=== PATIENT | male | born 1990 | race Caucasian/White ===

== ENCOUNTER → 2017-01-16 | Outpatient (CLI) | payer OTHER | LOC: KOH-I 11:31 | DX: M54.5 Low back pain (principal) | CPT/HCPCS: 72110 ==

== ENCOUNTER 2021-03-28 08:05 | Emergency (ER) | payer BC, OTHER ==
[2021-03-28] MEDS ORDERED: IBUPROFEN600 MG PO (09:33)
== END 2021-03-28 10:15 | disposition home or self-care (01) ==
LOC: ER1 08:05
DX: S83.92XA Sprain of unspecified site of left knee, initial encounter (principal); X50.1XXA Overexertion from prolonged static or awkward postures, initial encounter
CPT/HCPCS: 29530; 73562; 96372; 99283; J1885